=== PATIENT | female | born 1990 | race Caucasian/White ===

== ENCOUNTER → 2022-10-06 09:23 | Outpatient (CLI) | payer OTHER, SELFPAY ==
--- NOTE | 2022-10-06 | DI.US.S_ITS ---
PROCEDURE: US OB <= 14 WEEKS FETUS INDICATIONS: SPOTTING OUTSIDE/PRIOR DATING DATA: Last menstrual period (LMP): 07/22/2022. LMP-based estimated date of delivery (REYES): 04/28/2023. First dating scan (date and location): 10/06/2022 Estimated date of delivery (REYES) from first dating scan: 05/31/2023 The calculations are made using the ultrasound REYES of 04/28/2023. TECHNIQUE: Real-time scanning was performed of the fetus and maternal pelvic organs, with image documentation. Endovaginal scanning was also performed to better visualize the fetus and maternal ovaries. COMPARISON: None. FINDINGS: Embryo: Mean gestational sac measuring approximately 2.4 cm. [place]-rump length 1.8 cm. Yolk sac noted. Heart rate: No heart rate detected. IMPRESSION: Size less than expected for dates with no heart rate detected. Findings are consistent with intrauterine demise. We strive to produce accurate, complete, and clear reports of imaging services. To assist us in improving patient care, this report was composed using standard report templates and voice recognition software. Therefore, it may contain abnormal punctuation, insertions and/or omissions. Occasional wrong-word or sound-alike substitutions may occur. Though we review the report and make efforts to correct it, we do recommend that the report be read carefully in proper context to recognize any text inaccuracies. Dictated by: Fady Nielsen M.D. on 10/06/2022 at 10:52 Approved by: Fady Nielsen M.D. on 10/06/2022 at 10:54
== END ==
PROVIDERS: Referring Provider Nurse Practitioner Obstetrics & Gynecology; Visit Provider Nurse Practitioner Obstetrics & Gynecology
DX: O26.851 Spotting complicating pregnancy, first trimester (principal)
CPT/HCPCS: 76801; 76817

== ENCOUNTER → 2023-02-20 11:54 | Outpatient (CLI) | payer OTHER, SELFPAY ==
--- NOTE | 2023-02-20 | DI.RAD.S_ITS ---
PROCEDURE: XR KNEE RT 3V INDICATIONS: RIGHT KNEE PAIN TECHNIQUE: 3 views of the knee were acquired. COMPARISON: None. FINDINGS: Bones: No fractures or dislocations. No suspicious bony lesions. Soft tissues: There is a moderate joint effusion. No suspicious soft tissue calcifications. IMPRESSION: Moderate joint effusion. No significant bony abnormality is seen. If it would be helpful for clinical management decision making, please consider a dedicated, scheduled knee MRI for further evaluation (assuming that there is no contraindication). Dictated by: Ilir Gomez M.D. on 02/20/2023 at 21:06 Approved by: Ilir Gomez M.D. on 02/20/2023 at 21:07
[2023-02-20 12:18] LABS: Add Manual Diff / Slide Review NO; Basophils Absolute Auto 0 /uL (0-100); Basophils Percent Auto 0.6 % (0-2); Eosinophils Absolute Auto 0 /uL (0-450); Eosinophils Percent Auto 0.5 % (2-4); Hemoglobin 12.6 g/dL (12.0-16.0); Lymphocytes Absolute Auto 2200 /uL (1100-4500); Lymphocytes Percent Auto 37.1 % (25-40); Mean Corpuscular HGB Conc 34.1 % (30-36); Mean Corpuscular Hemoglobin 27.5 PG (26-34); Mean Corpuscular Volume 80.6 fL (80-100); Monocytes Absolute Auto 300 /uL (0-900); Monocytes Percent Auto 4.4 % (3-14); Neutrophils Absolute Auto 3300 /uL (1500-7000); Neutrophils Percent Auto 57.4 % (50-75); Platelet Count 174 X10^3/uL (150-400); Red Cell Distribution Width 14.6 % (11.6-14.8); White Blood Cell Count 5.8 X10^3/uL (4.5-11.0)
[2023-02-20 12:32] LABS: Alanine Aminotransferase 18 IU/L (<35); Albumin 4.3 g/dL (3.5-5.0); Albumin Globulin Ratio 1.4 (1.0-2.8); Alkaline Phosphatase 75 U/L (38-126); Aspartate Aminotransferase 22 IU/L (14-36); BUN Creatinine Ratio 16.2 (6-22); Bilirubin Total 0.6 mg/dL (0.2-1.3); Blood Urea Nitrogen 11 mg/dL (7-17); Calcium 9.1 mg/dL (8.4-10.2); Carbon Dioxide 24 mmol/L (22-32); Chloride 104 mmol/L (98-107); Cholesterol 225 mg/dL (140-199); Estimated Glomerular Filt Rate > 60 mL/min (>60); Glucose 104 mg/dL (70-100); HDL Cholesterol 45 mg/dL (40-60); HEMOLYSIS < 15 (0-50); LDL Cholesterol Calculated 153 mg/dL (<100); Potassium 3.9 mmol/L (3.4-5.1); Sodium 138 mmol/L (137-145); Total Protein 7.3 g/dL (6.3-8.2); Triglycerides 134 mg/dL (35-150)
== END ==
PROVIDERS: PCP Nurse Practitioner Family; Referring Provider Nurse Practitioner Family; Visit Provider Nurse Practitioner Family
DX: M25.461 Effusion, right knee (principal); O03.9 Complete or unspecified spontaneous abortion without complication; Z13.1 Encounter for screening for diabetes mellitus; Z13.220 Encounter for screening for lipoid disorders; M25.561 Pain in right knee; Z11.59 Encounter for screening for other viral diseases
CPT/HCPCS: 36415; 73562; 80053; 80061; 84443; 85025

== ENCOUNTER 2023-09-03 19:09 | Outpatient (CLI) | payer BC, SELFPAY ==
--- NOTE | 2023-09-03 20:04 | P.TNLD_ITS ---
Visit Information Visit Information Date of evaluation: 09/03/23 Primary OB Provider: Sandy Moore On-call OB Provider: Sandy Moroe Reason for Evaluation: Yes non-stress test Comments/Additional reasons for admission: Meliton Ott is a 32 year old at 31w2d by LMP and confirmed by ultrasound in first trimester. She is here today due to concerns about movement; he is moving but the movements feel differently to her and she is worried. Saw family yesterday, and it brought up feelings she had last [place] right before she miscarried. Here for reassurance, and feels better after NST. Has occasional contractions - feels some in her upper belly and some down low. Can't tell if they are becasue baby is moving or not. Denies regular, painful contractions today or recently. Vital Signs Vital Signs: BP 122/70 HR 99 Temp 96.9 F [facility] Medical History (Updated 09/03/23 @ 21:56 by Sandy Moore CNM, [facility]) Depression Varicose vein leg preg-unsp Asthma BMI 30.0-30.9,adult Gestational hypertension Family History (Updated 09/03/23 @ 22:16 by Sandy Moore CNM, [facility]) Father Hypertension Heart disease Aunt Hypertension Grandfather Heart disease Lung disease Grandmother Heart disease Lung disease Mother Liver disease Kidney disease Other Glaucoma Social History (Updated 09/03/23 @ 22:18 by Sandy Moore CNM, [facility]G) marital status: number of children: 1 household members: spouse lives independently: Yes housing: house pets and animals: No education level: college occupational status: employed current occupational exposures/hazards: No 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 Evaluation Evaluation Baseline heart rate: 150 Variability: Average (6-10) monitor accelerations: Present Monitor Decelerations: Absent Contraction Frequency (minutes): 4 (irregular, q 2-6 min, painless ) Uterine Contraction Intensity: Mild Category of Tracing: Reactive Diagnosis, Plan/Disposition Final Diagnosis (1) Non-reactive NST (non-stress test): Status: Acute (2) Supervision of high risk in third trimester: Status: Acute Plan/Disposition Plan: Discharge home. Recommend kick counts daily or when concerned. Reviewed how to do effectively. Recommend good self care.
== END 2023-09-03 19:53 | disposition home or self-care (01) ==
LOC: OB 09-09 16:01
PROVIDERS: PCP Nurse Practitioner Family; Referring Provider Advanced Practice Midwife; Visit Provider Advanced Practice Midwife
DX: O09.93 Supervision of high risk pregnancy, unspecified, third trimester (principal); Z3A.31 31 weeks gestation of pregnancy
CPT/HCPCS: 59025; G0378; G0379

== ENCOUNTER 2023-10-14 19:03 | Observation (INO) | payer OTHER, BC, SELFPAY ==
[2023-10-14] VITALS (12 sets, daily range): BP systolic 122–165; BP diastolic 67–92; PULSE 80–88; RESP 14–18; TEMP 36.8; O2SAT 96–98; BMI 33.3
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
--- NOTE | 2023-10-14 19:26 | PC.NURSE ---
Labor and delivery nurse and a mixing picker tender arrived to ED to perform NST test and an amnisure test.
--- NOTE | 2023-10-14 19:39 | PC.NURSE ---
L&D nurse reports that there is no contractions and that the AmniSure test is negative. provider aware.
[2023-10-14 20:27] LABS: Add Manual Diff / Slide Review NO; Basophils Absolute Auto 100 /uL (0-100); Basophils Percent Auto 0.4 % (0-2); Eosinophils Absolute Auto 0 /uL (0-450); Eosinophils Percent Auto 0.3 % (2-4); Hematocrit 33.3 % (36-46); Hemoglobin 11.2 g/dL (12.0-16.0); Lymphocytes Absolute Auto 1900 /uL (1100-4500); Lymphocytes Percent Auto 14.9 % (25-40); Mean Corpuscular HGB Conc 33.6 % (30-36); Mean Corpuscular Hemoglobin 28.5 PG (26-34); Mean Corpuscular Volume 84.9 fL (80-100); Monocytes Absolute Auto 500 /uL (0-900); Monocytes Percent Auto 3.8 % (3-14); Neutrophils Absolute Auto 10300 /uL (1500-7000); Neutrophils Percent Auto 80.6 % (50-75); Platelet Count 153 X10^3/uL (150-400); Red Blood Cell Count 3.92 X10^6/uL (4.0-5.2); Red Cell Distribution Width 14.6 % (11.6-14.8); White Blood Cell Count 12.8 X10^3/uL (4.5-11.0)
[2023-10-14 20:32] LABS: Alanine Aminotransferase 14 IU/L (<35); Albumin 3.5 g/dL (3.5-5.0); Albumin Globulin Ratio 1.1 (1.0-2.8); Alkaline Phosphatase 185 U/L (38-126); BUN Creatinine Ratio 23.1 (6-22); Bilirubin Total 0.4 mg/dL (0.2-1.3); Blood Urea Nitrogen 12 mg/dL (7-17); Calcium 9.3 mg/dL (8.4-10.2); Carbon Dioxide 20 mmol/L (22-32); Chloride 105 mmol/L (98-107); Estimated Glomerular Filt Rate > 60 mL/min (>60); Globulin 3.3 g/dL (1.7-4.1); Glucose 108 mg/dL (70-100); Potassium 3.7 mmol/L (3.4-5.1); Sodium 133 mmol/L (137-145); Total Protein 6.8 g/dL (6.3-8.2)
--- NOTE | 2023-10-14 20:56 | PC.NURSE ---
Dr. Holland aware of patients blood pressure and okay for patient to be sent over to labor and delivery for further monitoring.
[2023-10-14 20:58] LABS: Appearance Urine UA CLEAR; Bilirubin Urine UA NEGATIVE (NEGATIVE); Color Urine UA YELLOW; Glucose Urine UA NEGATIVE (Negative); Ketones Urine UA NEGATIVE (NEGATIVE); Leukocyte Esterase Urine UA NEGATIVE (NEGATIVE); Nitrite Urine UA NEGATIVE (Negative); Occult Blood Urine UA 1+ (Negative); Protein Urine UA NEGATIVE (Negative); Specific Gravity Urine UA 1.015 (1.000-1.035); Urobilinogen Urine UA 0.2 E.U./dL (0.2)
[2023-10-14 21:07] LABS: Bacteria Urine None Seen; Culture Indicated Urine Cult Not Indicated; RBC Urine 1-5/HPF (0-5/HPF); Squamous Epithelial Cell Urine 1-5 /HPF (0-5/HPF); WBC Urine 0-1/HPF (0-5/HPF); pH Urine UA 5.5 (4.5-8.0)
[2023-10-14 21:26] LABS: Creatinine Urine Random 70.8 mg/dL; Protein (Total) Urine Random 21 mg/dL (0-12); Protein Creatinine Ratio Urine 0.29 GRAM/24H
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
[2023-10-15 15:21] LABS: HEMOLYSIS 29 (0-50)
[2023-10-15 15:23] LABS: Aspartate Aminotransferase 27 IU/L (14-36)
== END 2023-10-14 23:40 | disposition home or self-care (01) ==
LOC: ED 20:57 → LABOR 10-27 23:02
PROVIDERS: Emergency Medicine; Admitting Provider Nurse Practitioner Obstetrics & Gynecology; Emergency Provider Nurse Practitioner Obstetrics & Gynecology; PCP Nurse Practitioner Family; Referring Provider Advanced Practice Midwife; Visit Provider Nurse Practitioner Obstetrics & Gynecology
DX: O26.893 Other specified pregnancy related conditions, third trimester (principal); M54.2 Cervicalgia; V43.92XA Unspecified car occupant injured in collision with other type car in traffic accident, initial encounter; Z3A.37 37 weeks gestation of pregnancy
CPT/HCPCS: 59025; 59050; 80053; 81001; 82570; 82962; 84112; 84156; 85025; 99284; G0378

== ENCOUNTER 2023-10-27 23:07 | Inpatient (IN) | payer BC, SELFPAY ==
--- NOTE | 2023-10-27 23:16 | P.HPOB_ITS ---
OB HPI Date/Time Date of admission: 10/27/23 Date Patient Seen: 10/27/23 Time Patient Seen: 23:16 History of Present Condition Chief complaint: labor : 3 Para: 1 Estimated Date of Delivery: 11/03/23 Estimated Gestational Age (weeks): 39.0 Narrative: Meliton Ott is a 32 year old female @ 39wks 0days by LMP concordant with 9wk US who presents for evaluation labor. Was seen in clinic this afternoon for routine care with CE /-2 with membranes swept. [place] a little crampy this afternoon and evening, but nothing strong. SROM for large gush of clear fluid at 2014 followed by steady increase in frequency and intensity of contractions. +FM. No vaginal bleeding. Now breathing through strong contractions every 2-3 minutes. Uncomplicated with CNMs. Started clindamycin PO today for a skin infection on her right ortiz. Desires low intervention . 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 History of Present care: good care, initiated at week # (9wks), number of visits (12) and pounds weight gain (25) Dating criteria: LMP confirmed by 1st trimester US Ultrasounds: normal mid trimester US Obstetrical complications: none Medical complications: none Preadmission Labs Blood type: O (+) positive -: Antibody screen: negative, GBS status: negative, HBsAG: negative, HIV: negative and RPR/VDLR: negative -: Chlamydia screen: not detected and Gonorrhea screen: not detected -: Rubella: immune and Varicella: immune HCT: 33.4 HCAB: negative Cell-free DNA: Negative 1 hr GTT: 106 Prior (ies) History: 11/07/2020: NSVB @ 41wks, 3hr labor, [id number], female, intact, no complications 09/2022: SAB @ 9wks Evaluation Evaluation Baseline heart rate: 140 Variability: Moderate (11-25) monitor accelerations: Present Monitor Decelerations: Absent Contraction Frequency (minutes): 2 Uterine Contraction Intensity: Strong/Firm Comments: CE deferred, apparent active labor PFSH Medical History Depression Varicose vein leg preg-unsp Asthma BMI 30.0-30.9,adult Gestational hypertension Family History Father Hypertension Heart disease Aunt Hypertension Grandfather Heart disease Lung disease Grandmother Heart disease Lung disease Mother Liver disease Kidney disease Other Glaucoma Social History marital status: number of children: 1 household members: spouse lives independently: Yes housing: house pets and animals: No education level: college occupational status: employed current occupational exposures/hazards: No 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, 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 do you feel safe at home: Yes Smoking Status: Never smoker alcohol intake: former substance use type: does not use well-balanced diet: daily or most days Meds Home Medications and Allergies Home Medications Medication Instructions Recorded Confirmed Type clindamycin HCl 150 mg capsule 450 mg PO 3XD 10/28/23 10/28/23 History sertraline 100 mg tablet 100 mg PO DAILY 10/28/23 10/28/23 History Allergies Allergy/AdvReac Type Severity Reaction Status Date / Time amoxicillin Allergy Mild Verified 10/14/23 19:13 Review of Systems Review of Systems ROS: Yes All systems reviewed with the patient and are negative except as otherwise documented OB Exam Vital signs Blood Pressure: 151/87 Pulse Rate: 90 Temperature: 97.5 F Resp Effort & Inspection: normal respiratory effort and able to speak in complete sentences Auscultation: clear to auscultation bilaterally Cardio Rate: regular rate Rhythm: regular rhythm Heart Sounds: S1 normal and S2 normal Presentation: vertex Objective Labs 10/27/23 23:25 10/27/23 23:25 Assessment and Plan Assessment and Plan Assessment and Plan narrative: A: Term Primipara Active labor No indication for GBS prophylaxis SROM x2 hours without sx of infection Cat I FHR P: Admit, routine labor orders. Expectant management of labor. May switch to intermittent auscultation. Continuous labor support. Anticipate second stage soon. Will continue PO antibiotics for skin infection .
[2023-10-27 23:28] VITALS: BP 151/87; PULSE 90; TEMP 36.4
[2023-10-27 23:50] LABS: Add Manual Diff / Slide Review NO; Basophils Absolute Auto 100 /uL (0-100); Basophils Percent Auto 0.7 % (0-2); Eosinophils Absolute Auto 0 /uL (0-450); Eosinophils Percent Auto 0.3 % (2-4); Hematocrit 36.2 % (36-46); Hemoglobin 11.9 g/dL (12.0-16.0); Lymphocytes Absolute Auto 2300 /uL (1100-4500); Lymphocytes Percent Auto 15.2 % (25-40); Mean Corpuscular HGB Conc 32.8 % (30-36); Mean Corpuscular Hemoglobin 28.1 PG (26-34); Mean Corpuscular Volume 85.7 fL (80-100); Monocytes Absolute Auto 600 /uL (0-900); Neutrophils Absolute Auto 12200 /uL (1500-7000); Neutrophils Percent Auto 79.8 % (50-75); Platelet Count 169 X10^3/uL (150-400); Red Blood Cell Count 4.22 X10^6/uL (4.0-5.2); White Blood Cell Count 15.3 X10^3/uL (4.5-11.0)
[2023-10-27 23:56] LABS: Alanine Aminotransferase 14 IU/L (<35); Albumin 3.9 g/dL (3.5-5.0); Albumin Globulin Ratio 1.1 (1.0-2.8); Alkaline Phosphatase 207 U/L (38-126); Aspartate Aminotransferase 26 IU/L (14-36); BUN Creatinine Ratio 20.8 (6-22); Bilirubin Total 0.5 mg/dL (0.2-1.3); Blood Urea Nitrogen 11 mg/dL (7-17); Calcium 9.4 mg/dL (8.4-10.2); Carbon Dioxide 22 mmol/L (22-32); Chloride 102 mmol/L (98-107); Estimated Glomerular Filt Rate > 60 mL/min (>60); Globulin 3.6 g/dL (1.7-4.1); Glucose 94 mg/dL (70-100); HEMOLYSIS 45 (0-50); Sodium 135 mmol/L (137-145); Total Protein 7.5 g/dL (6.3-8.2)
--- NOTE | 2023-10-28 00:18 | PM.OBPRVD ---
Events: No Care Labor & Delivery Delivery date: 10/28/23 Intrapartal Events: Precipitous Labor < 3 hours Cervical ripening method: none Induction method: none Delivery monitor: external FHT Route of delivery: Episiotomy description: None L&D Laceration Description: None Quantitative Blood Loss: 200 Anesthesia Type: None Narrative: Labor progressed precipitously to spontaneous urge to push and [place] was presumed complete at that time. Steady descent of vertex noted with strong maternal pushing efforts. NSVB of a vigorous baby boy in BRYAN position over an intact perineum. There was no nuchal cord and the shoulders delivered without additional maneuvers. Jeffreya reached down and brought her baby to her chest. 30 units of pitocin in 500mL LR was started at 250mL/hr for AMTSL. After cessation of pulsation, the cord was double clamped by JOELLEN and cut by Meliton. Cord blood sample was collected. Gentle cord traction and a single maternal push led to spontaneous, [place] delivery of an apparently intact placenta and membranes. Fundus immediately firm and bleeding minimal. QBL 200mL. Both mother and baby stable and skin to skin as I left the room. Baby 1: gender: Male Presentation: vertex Position: Right Occiput Anterior Placenta delivery description: Spontaneous Cord Vessel Description: 3 Vessels score (1 min): 8 score (5 min): 9 weight: 4.029 kg Plan for aftercare: Routine care
[2023-10-28] MEDS: DERMOPLAST SPRAY 20% 60 ML 1 SPRAY TOP (00:36)
[2023-10-28] MEDS: KETOROLAC 30 MG/ML VIAL IV (00:36)
[2023-10-28] MEDS: ACETAMINOPHEN 325 MG TABLET 650 MG PO ×2 (00:36→07:00)
[2023-10-28] MEDS: CLINDAMYCIN 150 MG CAPSULE 300 MG PO (06:14)
[2023-10-28] MEDS: IBUPROFEN 600 MG TABLET PO (07:00)
--- NOTE | 2023-10-28 11:55 | PM.OBDS.1 ---
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 Feeling well and eager for discharge to home. Voiding, ambulating and independently. Tolerating a general diet. Mild cramping pain well managed with PO medication. Mood feels good, plans to continue sertraline 100mg PO daily. Partner is present and supportive. Peripartum Data Infant Delivery Method: Natural Vaginal Laceration Description: None Episiotomy description: None Procedures: O80 complications: none (Elevated BP without dx of HTN upon admission, resolved after rapid, unmedicated and normotensive since. ) 1: Gender: Male Disposition of : home Discharge Diagnosis (1) Encounter for full-term uncomplicated delivery: Start Date: 10/27/23 Start Time: 23:54 Status: Acute Problem Details: Routine course Status at Discharge Cognitive/behavioral status at discharge: oriented and calm Functional status at discharge: independent ambulation Overall status at discharge: patient is progressing back to baseline Time Spent with Patient Time attestation: Total time spent providing and/or coordinating discharge services: Objective Labs 10/27/23 23:25 10/27/23 23:25 Labs: Laboratory Results - last 24 hr 10/27/23 23:25 WBC 15.3 H RBC 4.22 Hgb 11.9 L Hct 36.2 MCV 85.7 MCH 28.1 MCHC 32.8 RDW 15.0 H Plt Count 169 Neut % (Auto) 79.8 H Lymph % (Auto) 15.2 L Weston % (Auto) 4.0 Eos % (Auto) 0.3 L Baso % (Auto) 0.7 Neut # (Auto) 51220 H Lymph # (Auto) 2300 Weston # (Auto) 600 Eos # (Auto) 0 Baso # (Auto) 100 Sodium 135 L Potassium 4.0 Chloride 102 Carbon Dioxide 22 BUN 11 Creatinine 0.53 Estimated GFR > 60 BUN/Creatinine Ratio 20.8 Glucose 94 Calcium 9.4 Total Bilirubin 0.5 AST 26 ALT 14 Alkaline Phosphatase 207 H Total Protein 7.5 Albumin 3.9 Globulin 3.6 Albumin/Globulin Ratio 1.1 Blood Type O Positive Antibody Screen Negative Exam Vital Signs (past 8 hours): BP 118/70, HR 80bpm, RR 16/min, T 99.0F Temporal Other: Fundus firm @ U, lochia light to moderate without clots. Discharge Plan Discharge Plan Patient Disposition: Home Discharge orders & Medications Prescriptions: New ibuprofen 600 mg Tablet 600 mg PO Q6HR PRN (Reason: Pain, Mild (1-3)) 14 Days Qty: 60 0RF Continued sertraline 100 mg tablet 100 mg PO DAILY clindamycin HCl 150 mg capsule 450 mg PO 3XD Follow up/Referrals: Yanci Juárez CNM [[employer]] - (Follow-up at 2 weeks and 6 weeks , as scheduled. Appointment confirmations in your email.) Cherie Ozuna RN [Primary Care Provider] - Diet/Activity/Treatments Diet: Diet as Tolerated and Regular Activity: bed rest x 2 weeks, no heavy lifting for 4 weeks, pelvic rest x 6 weeks. Skin/Wound/Dressing Care Report to your healthcare provider any signs of infection, such as:: chills, fever, increased pain, unusual drainage and unusual redness Visit Report/Discharge Packet Instructions: DI for Depression Stand Alone Forms: Discharge: Care, Patient Portal/API, Stroke Signs & Symptoms Discharge Data Primary Care Provider: Cherie Ozuna
[2023-10-28 12:26] VITALS: BP 118/70; PULSE 80; TEMP 37.2
== END 2023-10-28 13:20 | disposition home or self-care (01) | DRG 807 ==
PROVIDERS: Admitting Provider Nurse Practitioner Obstetrics & Gynecology; PCP Nurse Practitioner Family; Referring Provider Nurse Practitioner Obstetrics & Gynecology; Visit Provider Nurse Practitioner Obstetrics & Gynecology
DX: O62.3 Precipitate labor (principal); Z37.0 Single live birth; Z3A.39 39 weeks gestation of pregnancy
CPT/HCPCS: 36415; 59050; 80053; 85025; 86850; 86900; 86901; G0379; J1885

== ENCOUNTER 2024-11-26 11:49 | Emergency (ER) | payer BC, SELFPAY ==
[2024-11-26 11:57] VITALS: BP 148/75; PULSE 66; RESP 16; TEMP 36.9; O2SAT 96; BMI 32.5
[2024-11-26] MEDS: KETOROLAC 30 MG/ML VIAL 15 MG IM (12:09)
--- NOTE | 2024-11-26 13:34 | ED.LOWEXIN ---
HPI - Extremity Injury (Lower) General Chief Complaint: Extremity Injury, Lower Stated Complaint: L Hip/Leg Injury Time Seen by Provider: 11/26/24 13:34 Source: patient Mode of arrival: Wheelchair History of Present Illness HPI Narrative: Patient is a healthy 34-year-old female presenting today with left leg and hip pain. She reports that she went to the chiropractor 1 week ago she started noticing a little discomfort in her hip she has been trying to stretch it and stuff. Today she had her 1-year-old on her hip bent over to get something and felt immediate pain and numbness down her left leg. She has pretty pinpoint pain in her left gluteal region and some tingling in her toes. No loss of bowel or bladder. No prior history of sciatic problems Related Data Home Medications Medication Instructions Recorded Confirmed sertraline 100 mg tablet 125 mg PO DAILY 11/14/24 11/14/24 Previous Rx's Medication Instructions Recorded methocarbamol 750 mg tablet 750 mg PO Q8H PRN muscle spasm #14 11/26/24 tabs Allergies Allergy/AdvReac Type Severity Reaction Status Date / Time amoxicillin Allergy Mild Verified 11/14/24 09:36 Patient History Medical History Depression Varicose vein leg preg-unsp Asthma BMI 30.0-30.9,adult Gestational hypertension Family History Father Hypertension Heart disease Aunt Hypertension Grandfather Heart disease Lung disease Grandmother Heart disease Lung disease Mother Liver disease Kidney disease Other Glaucoma Social History marital status: number of children: 1 household members: spouse lives independently: Yes housing: house pets and animals: No education level: college occupational status: employed current occupational exposures/hazards: No 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, 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 do you feel safe at home: Yes Smoking Status: Never smoker alcohol intake: former substance use type: does not use well-balanced diet: daily or most days Smoking Status: Never smoker alcohol intake frequency: holidays/special occasions only Exam Initial Vital Signs Initial Vital Signs: Vital Signs Temperature 98.4 F 11/26/24 11:57 Pulse Rate 66 11/26/24 11:57 Respiratory Rate 16 11/26/24 11:57 Blood Pressure 148/75 H 11/26/24 11:57 Pulse Oximetry 96 11/26/24 11:57 Oxygen Delivery Method Room Air 11/26/24 11:57 GENERAL: Alert 34-year-old female appears in pain CARDIOVASCULAR: peripheral pulses in tact, cap refill <2 sec RESPIRATORY: No respiratory distress, speaks in full sentences without difficulty BACK: No vertebral tenderness no step-off pinpoint left gluteal region pain EXTREMITIES: Normal range of motion, no clubbing or edema. Neurovascularly intact. Sensation in lower extremities intact NEUROLOGICAL: Cranial nerves II through XII grossly intact. Normal gait and speech. SKIN: Warm, dry, no petechiae, no rashes or lesions. Course Orders Ordered: Discontinued Medications Ketorolac Tromethamine (Ketorolac 30 Mg/Ml Vial) 15 mg IM NOW ONE Stop: 11/26/24 12:06 Last Admin: 11/26/24 12:09 Dose: 15 mg Documented By: KATIE Methocarbamol (Methocarbamol 500 Mg Tablet) 500 mg PO NOW ONE Stop: 11/26/24 13:42 Last Admin: 11/26/24 14:01 Dose: 500 mg Documented By: LIGIA Vital Signs Vital signs: Vital Signs - 8 hr 11/26/24 11:57 11/26/24 14:04 Temperature 98.4 F Pulse Rate 66 61 Respiratory Rate 16 18 Blood Pressure 148/75 H 113/68 Pulse Oximetry 96 97 Oxygen Delivery Method Room Air MDM - Extremity Injury (Lower) MDM Narrative Medical decision making narrative: Patient 34-year-old female presents today with left leg pain. Sounds as though she has had some issues throughout the week and then suddenly got worse with a particular movement. No concern for cauda equina. This seems to be more like piriformis sciatica syndrome. Discharge Plan Departure Patient Disposition: Home Clinical Impression: Sciatica Instructions: DI for Sciatica Activity Restrictions/Additional Instructions: *You have been diagnosed with sciatica *What to do: At this time increase movement and stretching as much as tolerated *Continue to take medications as directed Motrin 600 mg every 6 hours for [id number] pain Tylenol 1000 mg every 6 hours for [id number]-gy-[id number] pain Methocarbamol 750 mg to every 8-12 hours if needed for muscle spasm this can cause drowsiness *Follow up with your primary care provider in 2-3 days or call [phone] *Return to ER if you should have increasing pain weakness or any new, worsening or concerning symptoms Prescriptions: New methocarbamol 750 mg tablet 750 mg PO Q8H PRN (Reason: muscle spasm) Qty: 14 0RF No Action sertraline 100 mg tablet 125 mg PO DAILY Referrals: Nuria Delgado MD [Primary Care Provider] - Stand Alone Forms: Patient Portal/API/Survey
[2024-11-26] MEDS: methocarbamoL 500 MG TABLET PO (14:01)
[2024-11-26 14:04] VITALS: BP 113/68; PULSE 61; RESP 18; O2SAT 97
== END 2024-11-26 14:09 | disposition home or self-care (01) ==
PROVIDERS: Emergency Provider Emergency Medicine; PCP Student in an Organized Health Care Education/Training Program
DX: M54.32 Sciatica, left side (principal)
CPT/HCPCS: 96372; 99283; J1885

== ENCOUNTER → 2024-12-07 10:01 | Outpatient (CLI) | payer BC, SELFPAY ==
--- NOTE | 2024-12-07 10:02 | DI.RAD.S_ITS ---
PROCEDURE: XR LUMBAR SPINE 2-3V INDICATIONS: new onset lumbar pain TECHNIQUE: 3 views of the lumbar spine were acquired. COMPARISON: None. FINDINGS AND IMPRESSION: Mild spondylotic changes with multilevel facet arthropathy and disc space height loss, most significant at L5-S1. No acute fracture or traumatic subluxation. No suspicious soft tissue calcifications. If there is high concern for further derangement, consider MRI evaluation. Dictated by: Gonsalo Velasco M.D. on 12/07/2024 at 16:31 Approved by: Gonsalo Velasco M.D. on 12/07/2024 at 16:32
[2024-12-07 10:59] LABS: Add Manual Diff / Slide Review NO; Basophils Absolute Auto 100 /uL (0-100); Basophils Percent Auto 0.5 % (0-2); Eosinophils Absolute Auto 0 /uL (0-450); Eosinophils Percent Auto 0.1 % (2-4); Hematocrit 39.4 % (36-46); Hemoglobin 13.3 g/dL (12.0-16.0); Lymphocytes Absolute Auto 2400 /uL (1100-4500); Lymphocytes Percent Auto 22.1 % (25-40); Mean Corpuscular HGB Conc 33.7 % (30-36); Mean Corpuscular Volume 80.3 fL (80-100); Monocytes Absolute Auto 400 /uL (0-900); Neutrophils Absolute Auto 8000 /uL (1500-7000); Neutrophils Percent Auto 73.3 % (50-75); Platelet Count 205 X10^3/uL (150-400); Red Blood Cell Count 4.91 X10^6/uL (4.0-5.2); Red Cell Distribution Width 14.4 % (11.6-14.8); White Blood Cell Count 10.9 X10^3/uL (4.5-11.0)
[2024-12-07 11:08] LABS: HEMOLYSIS < 15 (0-50); Iron 63 ug/dL (37-170)
[2024-12-07 11:10] LABS: Alanine Aminotransferase 28 IU/L (<35); Albumin 4.8 g/dL (3.5-5.0); Albumin Globulin Ratio 1.5 (1.0-2.8); Alkaline Phosphatase 87 U/L (38-126); Aspartate Aminotransferase 26 IU/L (14-36); BUN Creatinine Ratio 23.2 (6-22); Bilirubin Total 0.4 mg/dL (0.2-1.3); Blood Urea Nitrogen 16 mg/dL (7-17); Calcium 9.7 mg/dL (8.4-10.2); Carbon Dioxide 24 mmol/L (22-32); Chloride 105 mmol/L (98-107); Cholesterol 271 mg/dL (140-199); Estimated Glomerular Filt Rate > 60 mL/min (>60); Globulin 3.1 g/dL (1.7-4.1); Glucose 100 mg/dL (70-100); HDL Cholesterol 46 mg/dL (40-60); HEMOLYSIS < 15 (0-50); LDL Cholesterol Calculated 194 mg/dL (<100); Potassium 3.9 mmol/L (3.4-5.1); Sodium 140 mmol/L (137-145); Total Protein 7.9 g/dL (6.3-8.2); Triglycerides 156 mg/dL (35-150)
[2024-12-07 11:19] LABS: Percent Iron Saturation 22 % (15-50); Total Iron Binding Capacity 283 ug/dL (265-497); Transferrin 275 mg/dL (206-381)
[2024-12-07 11:45] LABS: Ferritin 52 ng/mL (6-137)
== END ==
PROVIDERS: PCP Student in an Organized Health Care Education/Training Program; Referring Provider Student in an Organized Health Care Education/Training Program; Visit Provider Student in an Organized Health Care Education/Training Program
DX: M47.817 Spondylosis without myelopathy or radiculopathy, lumbosacral region (principal); M54.50 Low back pain, unspecified; M79.605 Pain in left leg; R63.5 Abnormal weight gain; Z86.2 Personal history of diseases of the blood and blood-forming organs and certain disorders involving the immune mechanism
CPT/HCPCS: 36415; 72100; 80053; 80061; 82728; 83540; 83550; 84443; 85025